=== PATIENT | male | born 1965 | race Caucasian/White ===

== ENCOUNTER → 2017-03-21 | Outpatient (CLI) | payer BC ==
[~2017-03-21] MED LIST: FURO40TA6 PO; HYDR25TA11 PO; HYDR25TA6 PO; IBUP400T PO; LACT10SO28 PO; LANS30CA16 PO; MILK1POW PO; MULT-208 PO; OMEG500C PO; OMEP-110 PO; POLY17PO5 PO; SPIR100T2 PO; SUCR1TAB26 PO; THIA100T52 PO; TRAZ100T15 PO; [UNRECOGNIZED DRUG - OTHER]
== END | disposition home or self-care (01) ==
LOC: CFH 07:18
PROVIDERS: ATTEND Internal Medicine Gastroenterology
DX: K74.69 Other cirrhosis of liver (principal); R16.1 Splenomegaly, not elsewhere classified; G47.01 Insomnia due to medical condition; E50.9 Vitamin A deficiency, unspecified; E55.9 Vitamin D deficiency, unspecified; R60.0 Localized edema; F10.20 Alcohol dependence, uncomplicated; K59.00 Constipation, unspecified
CPT/HCPCS: 76705